=== PATIENT | female | born 1990 | race Caucasian/White ===

== ENCOUNTER 2020-01-17 13:30 | Emergency (ER) | payer OTHER, MEDICAID, SELFPAY ==
[2020-01-17] VITALS (12 sets, daily range): BP systolic 124–133; BP diastolic 72–91; PULSE 80–105; RESP 18; O2SAT 98–100
--- NOTE | 2020-01-17 13:42 | DI.RAD.S_ITS ---
PROCEDURE: XR CHEST 1V INDICATIONS: palpitation, near syncope TECHNIQUE: One view of the chest was acquired. COMPARISON: None. FINDINGS: Surgical changes and devices: None. Lungs and pleura: Lungs are clear. No pleural effusions or pneumothorax. Mediastinum: Mediastinal contours appear normal. Heart size is normal. Bones and chest wall: No suspicious bony lesions. Overlying soft tissues appear unremarkable. IMPRESSION: Normal chest. Dictated by: Romina Taylor M.D. on 01/17/2020 at 13:17 Approved by: Romina Taylor M.D. on 01/17/2020 at 13:17
[2020-01-17 15:01] LABS: Add Manual Diff / Slide Review NO; Basophils Absolute Auto 0 /uL (0-100); Basophils Percent Auto 0.4 % (0-2); Eosinophils Absolute Auto 0 /uL (0-450); Eosinophils Percent Auto 0.2 % (2-4); Hematocrit 34.9 % (36-46); Hemoglobin 11.9 g/dL (12.0-16.0); Lymphocytes Absolute Auto 1500 /uL (1100-4500); Lymphocytes Percent Auto 15.5 % (25-40); Mean Corpuscular HGB Conc 34.2 % (30-36); Mean Corpuscular Hemoglobin 29.7 PG (26-34); Mean Corpuscular Volume 86.8 fL (80-100); Monocytes Absolute Auto 700 /uL (0-900); Monocytes Percent Auto 6.9 % (3-14); Neutrophils Absolute Auto 7300 /uL (1500-7000); Platelet Count 199 X10^3/uL (150-400); Red Blood Cell Count 4.02 X10^6/uL (4.0-5.2); Red Cell Distribution Width 14.3 % (11.6-14.8); White Blood Cell Count 9.5 X10^3/uL (4.5-11.0)
[2020-01-17 15:06] LABS: Creatine Kinase 38 U/L (30-135); Magnesium 1.9 mg/dL (1.6-2.3)
--- NOTE | 2020-01-17 15:12 | PC.NURSE ---
pt states hx of anxiety with rapid heartbeat, felt dizzy while walking to ED and laid down on sidewalk and called EMS to come into ED
[2020-01-17 15:18] LABS: Troponin I < 0.012 ng/mL (0.01-0.034)
[2020-01-17 15:27] LABS: Alanine Aminotransferase 23 IU/L (<35); Albumin 3.9 g/dL (3.5-5.0); Albumin Globulin Ratio 1.3 (1.0-2.8); Alkaline Phosphatase 51 U/L (38-126); Aspartate Aminotransferase 30 IU/L (14-36); BUN Creatinine Ratio 38.1 (6-22); Bilirubin Total 0.3 mg/dL (0.2-1.3); Blood Urea Nitrogen 24 mg/dL (7-17); Calcium 9.4 mg/dL (8.4-10.2); Carbon Dioxide 24 mmol/L (22-32); Chloride 112 mmol/L (98-107); Estimated Glomerular Filt Rate > 60.0 mL/min (>60); Glucose 107 mg/dL (70-100); HEMOLYSIS 16 (0-50); Potassium 3.4 mmol/L (3.4-5.1); Sodium 147 mmol/L (137-145); Total Protein 6.9 g/dL (6.3-8.2)
--- NOTE | 2020-01-17 15:50 | PC.NURSE ---
IV attempted twice without success, lab was called to draw blood
[2020-01-17 16:04] LABS: UR Morphine/Opiate cutoff 300 Negative (Negative); Ur Creatinine Normal (Normal); Ur Specific Gravity Normal (Normal); Urine Amphetamines Negative (Negative); Urine Barbiturates Negative (Negative); Urine Benzodiazepines Negative (Negative); Urine Cocaine Negative (Negative); Urine MDMA Negative (Negative); Urine Methadone Negative (Negative); Urine Methamphetamines Negative (Negative); Urine Oxycodone Negative (Negative); Urine Phencyclidine Negative (Negative); Urine Tetrahydrocannabinol Positive (Negative); Urine Tricyclic Antidepressant Negative (Negative); Urine pH Normal (Normal)
--- NOTE | 2020-01-18 00:49 | ED.ARRPALP ---
HPI - Arrhythmia/Palpitations <THERESE Lomax - Last Filed: 01/18/20 01:20> General Chief Complaint: Arrhythmia/Palpitations Stated Complaint: Rapid HR Source: patient and EMS Mode of arrival: EMS Limitations: no limitations History of Present Illness HPI narrative: This is a 29 year female, nonsmoker, who has noncontributing medical history and a visitor from [place] presents to ED with [facility] with chief complain of racing heart and feels like passing out when she had anxiety attacks. Patient denies associated symptoms such as chest pain, breathing difficulty, nausea/vomiting/diarrhea, fever, chills, or cold sweats. Patient denies having added stress more than usual at this time. Patient was not feeling well and walking to the hospital but not fell well so lie down on a street and a bypasseer called the ambulance. Patient states she has been hydrating well with [place] water and has been drinking 1-2 cans hourly. Patient reports she has been having restless leg, occasional tremors as well. She denies history of thyroid disease or taking high dose of caffeine or energy drinks. She denies using alcohol or street drugs. Related Data Allergies Allergy/AdvReac Type Severity Reaction Status Date / Time amoxicillin Allergy Severe Anaphylacti Verified 01/18/20 00:57 c Review of Systems <THERESE Lomax - Last Filed: 01/18/20 01:20> Review of Systems Narrative: General: Denies fever, chills, fatigue, malaise, sweats. HEENT: Denies sinus pain, ear pain, sore throat, difficulty swallowing, dizziness. Respiratory: Denies dyspnea, cough, wheezing, hemoptysis, sputum. Cardiovascular: Denies chest pain, (+) palpitations, orthopnea, edema, (+) near syncope. Gastrointestinal: Denies nausea, vomiting, abdominal pain, diarrhea, constipation, melena. : Denies dysuria, frequency, incontinence, hematuria, urinary retention. Musculoskeletal: Denies weakness, joint pain or bony pain. Skin: Denies rash, skin lesions, or other. Neurologic: Denies weakness, headache, numbness, change in speech, confusion, seizures, incoordination. Psychiatric: See HPI 12-point review of systems is negative except for those stated above. Patient History <THERESE Lomax - Last Filed: 01/18/20 01:20> Medical History Anxiety (Acute) Surgical History No pertinent past surgical history (Acute) Social History Smoking Status: Never smoker Smoking Status: Never smoker Substance Use Type: does not use Exam <THERESE Lomax - Last Filed: 01/18/20 01:20> Narrative Exam Narrative: GEN: Alert, oriented x 3, thin appearing, umkept appearance but in no acute distress. Head: Normal cephalic, atraumatic. No scalp or temporal tenderness, palpable mass or rash. EYES: Pupils are equal, round, and reactive to light and accommodation. Extraocular muscles are intact bilaterally. There is no subconjunctival hemorrhage, exudate and sclera non-icteric. ENT: Hearing grossly intact. Nose without bleeding, purulent discharge or deviation. Facial sinuses nontender to palpate. Mucous membrane moist, no mucosal lesion. Throat without erythema, tonsillar hypertrophy or exudate. Uvula in midline, airway patent. Neck: Trachea in midline. No JVD, non-tender without lymphadenopathy. No masses or thyroid megaly. Supple, non-tender and no meningeal signs. CARDIAC: Normal regular mild tachy rate and rhythm without murmurs, gallops, or rubs. No chest wall tenderness. No peripheral edema, cyanosis or pallor. Capillary refill is less than 2 seconds. RESPIRATORY: Lungs are clear to auscultate bilaterally. No cough, wheezes, rales, or rhonchi. No stridor, respiratory distress, increase work of breathing, or accessary muscle used. ABD: Abdomen soft, nontender and non-distended. No guarding or rebound tenderness to palpate. Bowel sounds are normal in all 4 quadrants. There is no palpable masses or organomegaly. EXT: Full painless ROM of all extremities with no loss of sensation, strength, effusion or edema. SKIN: Warm, dry, normal color for patient. No erythema, lesions or rash over visible areas. BACK: Nontender without deformity or crepitance. No flank tenderness. NEUROLOGICAL: Alert and oriented to place, time and person. Sensation and motor function intact bilaterally. No facial droops, dysphasia. PSYCHIATRIC: Good judgement and reason, without hallucinations, abnormal affect or abnormal behaviors during the examination. Patient is not suicidal. Initial Vital Signs Initial Vital Signs: Vital Signs Blood Pressure 133/91 H 01/17/20 13:33 <Katarzyna White MD - Last Filed: 01/18/20 07:22> Initial Vital Signs Initial Vital Signs: Vital Signs Blood Pressure 133/91 H 01/17/20 13:33 Scores <Rosalio Cruz VETERINARIAN ASSISTANT - Last Filed: 01/18/20 01:20> GCS Chava coma scale eye opening: Spontaneous Chava coma scale verbal response: Orientated Chava coma scale motor response: Obey commands Chava coma scale total score: 15 HEART Score Heart Score history: Slightly Suspicious Heart Score EKG: Normal Heart Score Age: < 45 years old Heart Score risk factors: No known risk factors Heart Score troponin: < or = to normal limit Heart Score Total: 0 Wells' Criteria for PE Clinical signs and symptoms of DVT: No PE is #1 Dx or equally likely: No Heart rate > 100: Yes Immobilization at least 3 days or surg in previous 4 weeks: No History of PE or DVT: No Hemoptysis: No Malignancy w/Treatment within 6 months or palliative: No Wells' PE Score total: 1.5 Course <Rosalio Cruz VETERINARIAN ASSISTANT - Last Filed: 01/18/20 01:20> Orders Ordered: Discontinued Medications Sodium Chloride (Normal Saline 0.9%) 1,000 mls @ 1,000 mls/hr IV CONT [facility] Last Admin: 01/17/20 17:06 Dose: Not Given Documented by: RONALDO Vital Signs Vital signs: Vital Signs - 8 hr 01/17/20 17:00 Pulse Rate 85 Pulse Oximetry 99 <Katarzyna White MD - Last Filed: 01/18/20 07:22> Orders Ordered: Discontinued Medications Sodium Chloride (Normal Saline 0.9%) 1,000 mls @ 1,000 mls/hr IV CONT [facility] Last Admin: 01/17/20 17:06 Dose: Not Given Documented by: CELESTINE Vital Signs Vital signs: Vital Signs - 8 hr 01/17/20 17:00 Pulse Rate 85 Pulse Oximetry 99 MDM - Arrhythmia/Palpitations <Rosalio Torres-THERESE Escobar - Last Filed: 01/18/20 01:20> Differential Diagnosis Differential diagnosis: Likely palpitations, anxiety, sinus tachycardia and other (electrolyte imbalance, infection, arrythmia, PE, , hyperthyroidism, hypo glycemia) Medical Records Attestation: I reviewed the patient's medical records. Lab Data Attestation: I reviewed the patient's lab results. Result diagrams: 01/17/20 14:40 01/17/20 14:40 Labs: Lab Results 01/17/20 01/17/20 01/17/20 Range/Units 14:40 14:40 14:40 WBC 9.5 (4.5-11.0) X10^3/uL RBC 4.02 (4.0-5.2) X10^6/uL Hgb 11.9 L (12.0-16.0) g/dL Hct 34.9 L (36-46) % MCV 86.8 (80-100) fL MCH 29.7 (26-34) PG MCHC 34.2 (30-36) % RDW 14.3 (11.6-14.8) % Plt Count 199 (150-400) X10^3/uL Neut % (Auto) 77.0 H (50-75) % Lymph % (Auto) 15.5 L (25-40) % [place] % (Auto) 6.9 (3-14) % Eos % (Auto) 0.2 L (2-4) % Baso % (Auto) 0.4 (0-2) % Neut # (Auto) 7300 H (8874-0460) /uL Lymph # (Auto) 1500 (4608-0006) /uL [place] # (Auto) 700 (0-900) /uL Eos # (Auto) 0 (0-450) /uL Baso # (Auto) 0 (0-100) /uL Sodium 147 H (137-145) mmol/L Potassium 3.4 (3.4-5.1) mmol/L Chloride 112 H (98-107) mmol/L Carbon Dioxide 24 (22-32) mmol/L BUN 24 H (7-17) mg/dL Creatinine 0.63 (0.52-1.04) mg/dL Estimated GFR > 60.0 (>60) mL/min BUN/Creatinine Ratio 38.1 H (6-22) Glucose 107 H (70-100) mg/dL Calcium 9.4 (8.4-10.2) mg/dL Magnesium 1.9 (1.6-2.3) mg/dL Total Bilirubin 0.3 (0.2-1.3) mg/dL AST 30 (14-36) IU/L ALT 23 (<35) IU/L Alkaline Phosphatase 51 (38-126) U/L Total Creatine Kinase 38 (30-135) U/L CK-MB (CK-2) TNP CK-MB (CK-2) Rel Index TNP Troponin I < 0.012 (0.01-0.034) ng/mL Total Protein 6.9 (6.3-8.2) g/dL Albumin 3.9 (3.5-5.0) g/dL Globulin 3.0 (1.7-4.1) g/dL Albumin/Globulin Ratio 1.3 (1.0-2.8) TSH U Opiates 300ng/mL cut (Negative) Ur Oxycodone Screen (Negative) Urine Methadone Screen (Negative) Ur Barbiturates Screen (Negative) U Tricyclic Antidepress (Negative) Ur Phencyclidine Scrn (Negative) Ur Amphetamines Screen (Negative) U Methamphetamines Scrn (Negative) Ur MDMA Scrn (Ecstasy) (Negative) U Benzodiazepines Scrn (Negative) Urine Cocaine Screen (Negative) U Marijuana (THC) Screen (Negative) 01/17/20 01/17/20 Range/Units 14:40 15:30 WBC (4.5-11.0) X10^3/uL RBC (4.0-5.2) X10^6/uL Hgb (12.0-16.0) g/dL Hct (36-46) % MCV (80-100) fL MCH (26-34) PG MCHC (30-36) % RDW (11.6-14.8) % Plt Count (150-400) X10^3/uL Neut % (Auto) (50-75) % Lymph % (Auto) (25-40) % [place] % (Auto) (3-14) % Eos % (Auto) (2-4) % Baso % (Auto) (0-2) % Neut # (Auto) (1943-1971) /uL Lymph # (Auto) (1322-0151) /uL [place] # (Auto) (0-900) /uL Eos # (Auto) (0-450) /uL Baso # (Auto) (0-100) /uL Sodium (137-145) mmol/L Potassium (3.4-5.1) mmol/L Chloride (98-107) mmol/L Carbon Dioxide (22-32) mmol/L BUN (7-17) mg/dL Creatinine (0.52-1.04) mg/dL Estimated GFR (>60) mL/min BUN/Creatinine Ratio (6-22) Glucose (70-100) mg/dL Calcium (8.4-10.2) mg/dL Magnesium (1.6-2.3) mg/dL Total Bilirubin (0.2-1.3) mg/dL AST (14-36) IU/L ALT (<35) IU/L Alkaline Phosphatase (38-126) U/L Total Creatine Kinase (30-135) U/L CK-MB (CK-2) CK-MB (CK-2) Rel Index Troponin I (0.01-0.034) ng/mL Total Protein (6.3-8.2) g/dL Albumin (3.5-5.0) g/dL Globulin (1.7-4.1) g/dL Albumin/Globulin Ratio (1.0-2.8) TSH Cancelled U Opiates 300ng/mL cut Negative (Negative) Ur Oxycodone Screen Negative (Negative) Urine Methadone Screen Negative (Negative) Ur Barbiturates Screen Negative (Negative) U Tricyclic Antidepress Negative (Negative) Ur Phencyclidine Scrn Negative (Negative) Ur Amphetamines Screen Negative (Negative) U Methamphetamines Scrn Negative (Negative) Ur MDMA Scrn (Ecstasy) Negative (Negative) U Benzodiazepines Scrn Negative (Negative) Urine Cocaine Screen Negative (Negative) U Marijuana (THC) Screen Positive H (Negative) Point of Care Testing Test Results Negative Glucose POC 115 Urine Dip Bedside Urine Glucose Negative Bedside Urine Bilirubin - Negative Bedside Urine Ketone - Negative Urine Specific [place] 1.025 Bedside Urine Occult Blood - Negative Bedside Urine pH 6 Bedside Urine Protein +/- 15 Bedside Urine Urobilinogen +/- 1mg Bedside Urine Nitrite - Negative Bedside Urine Leukocytes - Negative Esterase Imaging Data Chest x-ray: Radiologist's Impresson: [address] [id number] XRay Report Signed Patient: Patricia Franco#: [id number] : 1990Acct:[id number] Age/Sex: 29 / FDate of Service: 01/17/20 Loc: ED Accession Number: [id number] Procedure: XR chest 1V Ordering Provider: Rosalio Cruz PROCEDURE: XR CHEST 1V INDICATIONS: palpitation, near syncope TECHNIQUE: One view of the chest was acquired. COMPARISON: None. FINDINGS: Surgical changes and devices: None. Lungs and pleura: Lungs are clear. No pleural effusions or pneumothorax. Mediastinum: Mediastinal contours appear normal. Heart size is normal. Bones and chest wall: No suspicious bony lesions. Overlying soft tissues appear unremarkable. IMPRESSION: Normal chest. Dictated by: Romina Taylor M.D. on 01/17/2020 at 13:17 Approved by: Romina Taylor M.D. on 01/17/2020 at 13:17 ECG Data Attestation: I personally reviewed and interpreted this ECG as follows: Prior ECG tracings: not available for review Interpretation: ST rate at 103. NOrmal [place]. [place] interval 146, QRS duration 94, QT/QTC 327/[address] changes. No S1Q3T3. MDM Narrative Medical decision making narrative: This is a 29-year-old female who presents to ED by EMS with chief complain of fast heart beats , near syncope with feeling like having an anxiety attacks. EKG shows sinus tachycardia rate at 103 with normotensive. Negative orthostatic vital signs. Chest x-ray was negative for acute. CBC shows very mild decrease in H&H of 11.9 and 34.9. No leukocytosis. Despite patient states has been hydrating well herself, chemistry test shows sodium of 147, chloride of 112, normal magnesium and potassium. Elevated BUN of 24 with increased BUN/creatinine ratio of 38.1 indicating dehydration. Glucose was 107. Normal liver and kidney function test. Cardiac enzymes were negative. TSH was ordered but it was unable to process this due to the patient was hard stick for blood draw and IV start. Patient was hydrated orally with 2 largest cups of water. Patient reports feeling improved and was able to ambulate to the bathroom without dizziness in stable gait. Despite patient states not using street drugs, urine test came back with positive for THC. Wells criteria for PE was 1.5 and in low risk. No CT angio was done at this time. Patient is afebrile and no source of infection was found. Patient's heart rate improved to 85 after the hydration and rest before discharged home with normotensive and O2 said at 99%. Advised to hydrate well for next a day or 2. Return precautions were discussed with patient and patient verbalized understanding in agreement with treatment plan. <Katarzyna White MD - Last Filed: 01/18/20 07:22> Lab Data Labs: Lab Results 01/17/20 01/17/20 01/17/20 Range/Units 14:40 14:40 14:40 WBC 9.5 (4.5-11.0) X10^3/uL RBC 4.02 (4.0-5.2) X10^6/uL Hgb 11.9 L (12.0-16.0) g/dL Hct 34.9 L (36-46) % MCV 86.8 (80-100) fL MCH 29.7 (26-34) PG MCHC 34.2 (30-36) % RDW 14.3 (11.6-14.8) % Plt Count 199 (150-400) X10^3/uL Neut % (Auto) 77.0 H (50-75) % Lymph % (Auto) 15.5 L (25-40) % [place] % (Auto) 6.9 (3-14) % Eos % (Auto) 0.2 L (2-4) % Baso % (Auto) 0.4 (0-2) % Neut # (Auto) 7300 H (3590-9264) /uL Lymph # (Auto) 1500 (3854-4280) /uL [place] # (Auto) 700 (0-900) /uL Eos # (Auto) 0 (0-450) /uL Baso # (Auto) 0 (0-100) /uL Sodium 147 H (137-145) mmol/L Potassium 3.4 (3.4-5.1) mmol/L Chloride 112 H (98-107) mmol/L Carbon Dioxide 24 (22-32) mmol/L BUN 24 H (7-17) mg/dL Creatinine 0.63 (0.52-1.04) mg/dL Estimated GFR > 60.0 (>60) mL/min BUN/Creatinine Ratio 38.1 H (6-22) Glucose 107 H (70-100) mg/dL Calcium 9.4 (8.4-10.2) mg/dL Magnesium 1.9 (1.6-2.3) mg/dL Total Bilirubin 0.3 (0.2-1.3) mg/dL AST 30 (14-36) IU/L ALT 23 (<35) IU/L Alkaline Phosphatase 51 (38-126) U/L Total Creatine Kinase 38 (30-135) U/L CK-MB (CK-2) TNP CK-MB (CK-2) Rel Index TNP Troponin I < 0.012 (0.01-0.034) ng/mL Total Protein 6.9 (6.3-8.2) g/dL Albumin 3.9 (3.5-5.0) g/dL Globulin 3.0 (1.7-4.1) g/dL Albumin/Globulin Ratio 1.3 (1.0-2.8) TSH U Opiates 300ng/mL cut (Negative) Ur Oxycodone Screen (Negative) Urine Methadone Screen (Negative) Ur Barbiturates Screen (Negative) U Tricyclic Antidepress (Negative) Ur Phencyclidine Scrn (Negative) Ur Amphetamines Screen (Negative) U Methamphetamines Scrn (Negative) Ur MDMA Scrn (Ecstasy) (Negative) U Benzodiazepines Scrn (Negative) Urine Cocaine Screen (Negative) U Marijuana (THC) Screen (Negative) 01/17/20 01/17/20 Range/Units 14:40 15:30 WBC (4.5-11.0) X10^3/uL RBC (4.0-5.2) X10^6/uL Hgb (12.0-16.0) g/dL Hct (36-46) % MCV (80-100) fL MCH (26-34) PG MCHC (30-36) % RDW (11.6-14.8) % Plt Count (150-400) X10^3/uL Neut % (Auto) (50-75) % Lymph % (Auto) (25-40) % [place] % (Auto) (3-14) % Eos % (Auto) (2-4) % Baso % (Auto) (0-2) % Neut # (Auto) (7279-6796) /uL Lymph # (Auto) (7525-7993) /uL [place] # (Auto) (0-900) /uL Eos # (Auto) (0-450) /uL Baso # (Auto) (0-100) /uL Sodium (137-145) mmol/L Potassium (3.4-5.1) mmol/L Chloride (98-107) mmol/L Carbon Dioxide (22-32) mmol/L BUN (7-17) mg/dL Creatinine (0.52-1.04) mg/dL Estimated GFR (>60) mL/min BUN/Creatinine Ratio (6-22) Glucose (70-100) mg/dL Calcium (8.4-10.2) mg/dL Magnesium (1.6-2.3) mg/dL Total Bilirubin (0.2-1.3) mg/dL AST (14-36) IU/L ALT (<35) IU/L Alkaline Phosphatase (38-126) U/L Total Creatine Kinase (30-135) U/L CK-MB (CK-2) CK-MB (CK-2) Rel Index Troponin I (0.01-0.034) ng/mL Total Protein (6.3-8.2) g/dL Albumin (3.5-5.0) g/dL Globulin (1.7-4.1) g/dL Albumin/Globulin Ratio (1.0-2.8) TSH Cancelled U Opiates 300ng/mL cut Negative (Negative) Ur Oxycodone Screen Negative (Negative) Urine Methadone Screen Negative (Negative) Ur Barbiturates Screen Negative (Negative) U Tricyclic Antidepress Negative (Negative) Ur Phencyclidine Scrn Negative (Negative) Ur Amphetamines Screen Negative (Negative) U Methamphetamines Scrn Negative (Negative) Ur MDMA Scrn (Ecstasy) Negative (Negative) U Benzodiazepines Scrn Negative (Negative) Urine Cocaine Screen Negative (Negative) U Marijuana (THC) Screen Positive H (Negative) Point of Care Testing Test Results Negative Glucose POC 115 Urine Dip Bedside Urine Glucose Negative Bedside Urine Bilirubin - Negative Bedside Urine Ketone - Negative Urine Specific [place] 1.025 Bedside Urine Occult Blood - Negative Bedside Urine pH 6 Bedside Urine Protein +/- 15 Bedside Urine Urobilinogen +/- 1mg Bedside Urine Nitrite - Negative Bedside Urine Leukocytes - Negative Esterase Discharge Plan Departure Patient Disposition: Home Clinical Impression: Near syncope, Tachycardia, Dehydration Discharge Date/Time: 01/17/20 17:23 Instructions: Dehydration, DI for Tachycardia Activity Restrictions/Additional Instructions: You have been diagnosed with [tachycardia and near syncope likely from dehydration]. What to do: *Take your medications as directed. Please hydrate with water at least 2 L next couple of days. EKG shows no acute findings. Very mild anemia per blood test. Your sodium, chloride, BUN was elevated indicating your dehydrated. Cardiac enzymes were negative. Chest x-ray was negative For acute findings. *Follow up with your primary care provider in 2-3 days, call for an appointment. Let them know you were seen in the ED and that we asked you to be seen in follow up. *Return to ED if you have any new, worsening, or concerning symptoms, such as [chest pain, breathing difficulty, unable to tolerate fluids, fever, or any acute concerns]. Referrals: Adriana Cabrera DO [Primary Care Provider] - <Katarzyna White MD - Last Filed: 01/18/20 07:22> Cosign ED Attending Cosignature Attestation: I was immediately available in the department for consultation throughout this patient's visit. I agree with documentation as above. Katarzyna White MD
== END 2020-01-17 17:23 | disposition home or self-care (01) ==
PROVIDERS: Emergency Provider Nurse Practitioner Family; PCP Family Medicine
DX: R55 Syncope and collapse (principal); R00.0 Tachycardia, unspecified; E86.0 Dehydration; R79.89 Other specified abnormal findings of blood chemistry
CPT/HCPCS: 71045; 80053; 80305; 81003; 81025; 82550; 82962; 83735; 84484; 85025; 93005; 93010; 99283; 99284

== ENCOUNTER 2020-02-12 13:20 | Observation (INO) | payer OTHER, MEDICAID, SELFPAY ==
[2020-02-12] VITALS (16 sets, daily range): BP systolic 115–168; BP diastolic 75–105; PULSE 81–140; RESP 10–24; TEMP 36.2–37.1; O2SAT 94–100; BMI 20.3
--- NOTE | 2020-02-12 13:37 | DI.RAD.S_ITS ---
PROCEDURE: XR HAND LT MIN 3V INDICATIONS: blisters TECHNIQUE: 3 views of the hand(s) acquired. COMPARISON: None. FINDINGS: Bones: No fractures or dislocations. Carpal bones are normally aligned. No suspicious bony lesions. Soft tissues: Prominent soft tissue thickening is seen, particularly involving the base of the thumb and the proximal 2nd and 3rd fingers, get there is generalized soft tissue swelling. IMPRESSION: Generalized soft tissue swelling, with particular thickening of the base of the thumb and the proximal 2nd and 3rd fingers. Please correlate with known history and physical examination findings. Dictated by: Artem Fraga M.D. on 02/12/2020 at 13:31 Approved by: Artem Fraga M.D. on 02/12/2020 at 13:33
--- NOTE | 2020-02-12 13:48 | ED_ITS ---
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 She is unsure what happened. She says that she was cleaning the garage out yesterday she denies using any chemicals she certainly did not injure it. She thought that it felt weird last night sort of like she slept on it woke up late this morning and has significant swelling and blisters all around her hand. She denies any previous fevers chills or weakness. She denies any abuse. 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 Later patient admits that she recently relapsed and injected heroin into her hip yesterday and fell asleep on that hand. She adamantly denies any chemical use. Left hand dominant MD complaint: abscess/boil and lesion Related Data Home Medications Medication Instructions Recorded Confirmed No Known Home Medications 02/12/20 02/12/20 Allergies Allergy/AdvReac Type Severity Reaction Status Date / Time amoxicillin Allergy Severe Anaphylacti Verified 02/12/20 15:01 c doxycycline Allergy Verified 02/12/20 15:38 haloperidol [From Haldol] Allergy Verified 02/12/20 15:38 Review of Systems Review of Systems Narrative: GENERAL: Denies chills, fatigue, malaise, fever, sweats, travel HEENT: Denies sinus pain, ear pain, sore throat, difficulty swallowing, neck pain RESPIRATORY: Denies dyspnea, cough, wheezing, hemoptysis, sputum. CARDIOVASCULAR: Denies chest pain, palpitations, orthopnea, edema GASTROINTESTINAL: Denies nausea, vomiting, abdominal pain, diarrhea, constipation, melena. : Denies dysuria, frequency, incontinence, hematuria, urinary retention, flank pain. MUSCULOSKELETAL: Denies weakness, joint pain, or bony pain SKIN: See HPI NEUROLOGIC: Denies weakness, dizziness, headache, numbness, change in speech, confusion PSYCHIATRIC: No concerning psychosocial issues. 12 point review of systems is negative except for those stated above and HPI Patient History Medical History (Updated 02/12/20 @ 17:47 by Jaye Rodriguez DO) Anxiety (Acute) Epilepsy (Acute) Surgical History (Updated 02/12/20 @ 15:54 by Kanu Lino MD) No pertinent past surgical history (Acute) Status post (Acute) Social History (Updated 02/12/20 @ 13:52 by Jaye Rodriguez DO) Smoking Status: Never smoker substance use type: former substance user Smoking Status: Never smoker Substance Use Type: does not use Exam Initial Vital Signs Initial Vital Signs: Vital Signs Temperature 98.8 F 02/12/20 13:20 Pulse Rate 140 H 02/12/20 13:20 Respiratory Rate 16 02/12/20 13:20 Blood Pressure 168/76 H 02/12/20 13:20 Pulse Oximetry 97 02/12/20 13:20 GENERAL: Well-appearing, well-nourished and in no acute distress. CARDIOVASCULAR: peripheral pulses in tact, cap refill <2 sec RESPIRATORY: No respiratory distress, speaks in full sentences without difficulty EXTREMITIES: Normal range of motion, no clubbing or edema. Neurovascularly intact Left hand: See images below. Extreme pain decreased range of motion due to pain and swelling. She actually has sensation at the tips of all finger tips. She has a good strong radial pulse. The forearm is soft. Skin is blotchy with erythematous areas. NEUROLOGICAL: Cranial nerves II through XII grossly intact. Normal gait and speech. SKIN: Warm, dry, no petechiae, no rashes or lesions. Course Course Course Narrative: Orders Ordered: ED Orders 02/12/20 13:37 XR hand LT min 3V Stat 02/12/20 14:29 COVID19 -ED/INPAT/OR/L&D Stat 02/12/20 15:55 Urine Drug Screen, Rapid Stat 02/12/20 16:39 Basic Metabolic Panel Stat C-Reactive Protein Quant Stat Complete Blood Count AUTO DIFF Stat Erythrocyte Sedimentation Rate Stat Acetaminophen (Tylenol) 650 mg PO PACUNOW PRN PRN Reason: Pain, Mild (1-3) Fentanyl (Sublimaze) 0 mcg IV Q5M PRN PRN Reason: Pain, Moderate (4-6) Hydromorphone HCl (Dilaudid) 0 mg IV Q5MIN PRN PRN Reason: Pain, Mild (1-3) Lactated Ringer's (Lactated Ringers) 1,000 mls @ 42 mls/hr IV CONT CHRISSIE Last Infusion: 02/12/20 17:25 Dose: 0 mls/hr Documented by: JOSE L Admin: 02/12/20 16:29 Dose: 42 mls/hr Documented by: JOSE L Lactated Ringer's (Lactated Ringers) 1,000 mls @ 120 mls/hr IV CONT CHRISSIE Meperidine HCl (Demerol) 25 mg IV PACUNOW PRN PRN Reason: Moderate pain or shivering Ondansetron HCl (Zofran) 4 mg IV NOW PRN PRN Reason: Nausea And Vomiting Last Admin: 02/12/20 18:08 Dose: 4 mg Documented by: LINDA Oxycodone HCl (Percolone) 5 mg PO PACUNOW PRN PRN Reason: Mild or moderate pain Discontinued Medications Hydromorphone HCl (Dilaudid) 1 mg IV NOW ONE Stop: 02/12/20 13:38 Last Admin: 02/12/20 14:07 Dose: Not Given Documented by: KEARA Hydromorphone HCl (Dilaudid) 1 mg IV NOW ONE Stop: 02/12/20 15:17 Last Admin: 02/12/20 15:22 Dose: 1 mg Documented by: NICKY Sodium Chloride (Normal Saline 0.9%) 1,000 mls @ 1,000 mls/hr IV BOLUS ONE Stop: 02/12/20 15:31 Last Infusion: 02/12/20 18:25 Dose: 100 mls/hr Documented by: Infusion: 02/12/20 17:25 Dose: 100 mls/hr Documented by: JOSE L Infusion: 02/12/20 16:29 Dose: 0 mls/hr Documented by: JOSE L Admin: 02/12/20 14:43 Dose: 100 mls/hr Documented by: ALTON Clindamycin Phosphate (Cleocin) 900 mg in 50 mls @ 50 mls/hr IV NOW ONE Stop: 02/12/20 16:49 Last Infusion: 02/12/20 16:40 Dose: 0 mls/hr Documented by: JOSE L Admin: 02/12/20 16:30 Dose: 50 mls/hr Documented by: BUSB Consultations Consultation #1: Dr. Vick, burn physician at [facility] recommend irrigating until we know the cause. Also requests asking patient if there is any chance she injected, may be ischemic and need hand surgery immediately. Time: 14:25 Consultation #2: Dr. Song hand surgery at [place], requests that are orthopedics release pressure of the hand this seems to be a compartment syndrome of the hand that he is happy to accept afterwards. He also requests pulse oximeter be placed on all finger tips. Time: 14:44 Consultation #3: Dr. Lino updated on concern for potential compartment syndrome he is in ED to see and evaluate patient. Patient going to OR Time: 14:50 Vital Signs Vital signs: Vital Signs - 8 hr 02/12/20 13:20 02/12/20 14:56 02/12/20 15:00 Temperature 98.8 F Pulse Rate 140 H 116 H 97 H Respiratory Rate 16 24 22 Blood Pressure 168/76 H 157/104 H 156/105 H Pulse Oximetry 97 100 100 MDM - Skin/Abscess/Foreign Bdy Lab Data Attestation: I reviewed the patient's lab results. Result diagrams: 02/12/20 16:39 02/12/20 16:39 Labs: Lab Results 02/12/20 Range/Units 14:29 COVID-19 PCR Negative (Negative) Point of Care Testing Test Results Negative Imaging Data Extremity x-ray #1: Radiologist's Impression: PROCEDURE: XR HAND LT MIN 3V INDICATIONS: blisters TECHNIQUE: 3 views of the hand(s) acquired. COMPARISON: None. FINDINGS: Bones: No fractures or dislocations. Carpal bones are normally aligned. No suspicious bony lesions. Soft tissues: Prominent soft tissue thickening is seen, particularly involving the base of the thumb and the proximal 2nd and 3rd fingers, get there is generalized soft tissue swelling. IMPRESSION: Generalized soft tissue swelling, with particular thickening of the base of the thumb and the proximal 2nd and 3rd fingers. Please correlate with known history and physical examination findings. Dictated by: Artem Fraga M.D. on 02/12/2020 at 13:31 Approved by: Artem Fraga M.D. on 02/12/2020 at 13:33 [facility] Narrative Medical decision making narrative: Patient initially not up front about what had happened. She then admitted that she used heroin yesterday fell asleep under hand. A concern for compartment syndrome. She has pain 100 proportion but does have sensation in all 5 finger tips. Pulse ox some 95%, 2nd finger, 97%, 3rd finger 97%, 4th finger is 90%, 5th finger 100% Patient is accepted to [facility] by Dr. Greenberg compartment syndrome has been addressed by Dr. Lino. Dr. Lino confirms likely compartment syndrome of the hypothenar eminence. He also released the carpal tunnel as well. Critical Care Time Critical Care Time Critical Care Time: Yes Total Critical Care Time: 45 Attestation: The high probability of a clinically significant, sudden or life threatening deterioration of the neurovascular system(s) required my full and direct attention, intervention and personal management. The aggregate critical care time was [45] minutes. This time is in addition to time spent performing reported procedures but includes the following: [x] Data Review and interpretation [x] Patient assessment and monitoring of vital signs [x] Documentation [x] Medication orders and management Discharge Plan Departure Patient Disposition: General Acute Hospital Clinical Impression: Compartment syndrome of hand Qualifiers: Encounter type: initial encounter Laterality: left Qualified Code(s): T79.A12A - Traumatic compartment syndrome of left upper extremity, initial encounter Discharge Date/Time: 02/12/20 16:21 Admit Date/Time: 02/12/20 15:29 Admit Provider: Kanu Lino
[2020-02-12] MEDS: HYDROMORPHONE 1 MG INJ (14:08)
[2020-02-12] MEDS: SODIUM CHLORIDE 0.9% 1,000 ML 100 ML IV (14:43)
[2020-02-12 15:07] LABS: COVID19 -Nasal RAPID Negative (Negative)
--- NOTE | 2020-02-12 15:07 | PC.NURSE ---
patient is left hand dominant. each of the patients fingers on her left hand checked with the pulse oximeter and the results were 5th digit- 100% 4th digit- 90% 3rd digit- 97% 2nd digit- 97% 1st digit- 95%. patients left arm/hand elevated. provider aware.
[2020-02-12] MEDS: HYDROMORPHONE 1 MG INJ IV (15:22)
--- NOTE | 2020-02-12 15:50 | P.HP_ITS ---
History of Present Illness History of Present Illness Date Patient Seen: 02/12/20 Time Patient Seen: 15:40 Date of Onset of Symptoms: 02/12/20 Chief complaint: lt hand swollen/ blistered Narrative: Patient is a 29-year-old left-hand dominant female. She injected heroin IV yesterday and lost consciousness, lying with pressure on her left hand. She awoke during the night to significant left hand pain. This did not improve during the day and she reported to [facility] Emergency Room. Consultation with [facility] was obtained by the emergency room staff. [facility] has requested local compartment release prior to sending the patient. I have been consulted to perform this. The patient has been NPO since lunch time yesterday. She reports that she is HIV negative and hepatitis negative to her knowledge. She reports that she had been in recovery but this was her 1st IV injection in relapse. Patient History Medical History (Updated 02/12/20 @ 15:54 by Kanu Lino MD) Anxiety (Acute) Epilepsy (Acute) Surgical History (Updated 02/12/20 @ 15:54 by Kanu Lino MD) No pertinent past surgical history (Acute) Status post (Acute) Family & Social History Social History: The patient has a history of IV drug use as outlined in the history of present illness. Safety & Behavioral: Feels Safe in Current Yes Environment Been Physically Hurt or No Threatened By a Person Tobacco & Substance use: Smoking Status Never smoker Substance Use Type does not use Meds Home Medications and Allergies Home Medications Medication Instructions Recorded Confirmed Type No Known Home Medications 02/12/20 02/12/20 History Allergies Allergy/AdvReac Type Severity Reaction Status Date / Time amoxicillin Allergy Severe Anaphylacti Verified 02/12/20 15:01 c doxycycline Allergy Verified 02/12/20 15:38 haloperidol [From Haldol] Allergy Verified 02/12/20 15:38 Review of Systems Review of Systems ROS: Yes All systems reviewed with the patient and are negative except as otherwise documented Exam Vital Signs (past 8 hours): - 02/12/20 13:20 02/12/20 14:56 02/12/20 15:00 Temperature 98.8 F Pulse Rate 140 H 116 H 97 H Respiratory Rate 16 24 22 Blood Pressure 168/76 H 157/104 H 156/105 H Pulse Oximetry 97 100 100 02/12/20 15:30 Temperature Pulse Rate 113 H Respiratory Rate Blood Pressure Pulse Oximetry 100 Oxygen Delivery Method Room Air Narrative Exam Narrative: HEENT normocephalic atraumatic. Chest clear to auscultation. Cardiac exam regular rate and rhythm no rubs murmurs or gallops. Abdomen soft nontender with no masses and normal abdominal bowel sounds. Left upper extremity is grossly swollen with large blisters overlying the thumb and several of the fingers. The dorsum of the hand is quite tense. The thenar and hypothenar eminences are less so. She has intact light touch in the tips of all digits. Objective Labs Labs: Laboratory Results - last 24 hr 02/12/20 14:29 COVID-19 PCR Negative Assessment & Plan Assessment & Plan narrative: The patient has been lying on her hand for appro ximately 12-18 hours while unconscious from the use of heroin intravenously. Her hand is grossly swollen and may have a compartment syndrome. Both the emergency room physician and I have discussed the case with the on-call hand surgeon at [facility]. It is there institutional policy that patients with compartment syndrome require fasciotomy prior to transfer. We will perform fasciotomies of the hand and a carpal tunnel release. I have informed the patient this is not an operation I am familiar with but given the emergency situation it is necessary that we proceed. Risks discussed included but were not limited to: Possible incomplete release, permanent nerve or muscle damage, infection, deep venous thrombosis, pulmonary embolism, stroke, myocardial infarction, permanent paralysis and . The patient indicated her understanding and has agreed to proceed with surgery. COVID-19 COVID-19 status: Negative Result date/Date tested (Pos, Neg/Pending): 02/12/20 Time Spent With Patient Time with patient: 25 - 35 minutes
[2020-02-12 16:13] LABS: WBC Urine None Seen (0-5/HPF)
[2020-02-12] MEDS: LACTATED RINGERS 1,000 ML 42 ML IV (16:29)
[2020-02-12] MEDS: CLINDAMYCIN 900 MG/50 ML PIGGYBACK 50 MG IV (16:30)
[2020-02-12 16:31] LABS: Amorphous Sediment Urine 2+; Culture Indicated Urine Cult Not Indicated; RBC Urine 1-5/HPF (0-5/HPF); Squamous Epithelial Cell Urine 1-5 /HPF (0-5/HPF)
[2020-02-12 16:36] LABS: Ur Creatinine Normal (Normal); Ur Specific Gravity Normal (Normal); Urine pH Normal (Normal)
[2020-02-12 16:37] LABS: UR Morphine/Opiate cutoff 300 Positive (Negative); Urine Amphetamines Positive (Negative); Urine Barbiturates Negative (Negative); Urine Benzodiazepines Positive (Negative); Urine Cocaine Negative (Negative); Urine MDMA Negative (Negative); Urine Methadone Negative (Negative); Urine Methamphetamines Positive (Negative); Urine Oxycodone Negative (Negative); Urine Phencyclidine Negative (Negative); Urine Tetrahydrocannabinol Positive (Negative); Urine Tricyclic Antidepressant Negative (Negative)
--- NOTE | 2020-02-12 16:54 | SUR.OPER ---
Supine on padded OR bed, head on pillow, right arm secured on padded arm board at <90 degrees abduction, left arm on large padded arm board controlled by surgeon, legs uncrossed, safety belt at thigh, tape over blanket over lower legs.
[2020-02-12 16:55] LABS: Add Manual Diff / Slide Review NO; Basophils Absolute Auto 0 /uL (0-100); Basophils Percent Auto 0.2 % (0-2); Eosinophils Absolute Auto 0 /uL (0-450); Hematocrit 37.7 % (36-46); Hemoglobin 12.7 g/dL (12.0-16.0); Lymphocytes Absolute Auto 800 /uL (1100-4500); Lymphocytes Percent Auto 9.9 % (25-40); Mean Corpuscular HGB Conc 33.7 % (30-36); Mean Corpuscular Hemoglobin 29.7 PG (26-34); Monocytes Absolute Auto 300 /uL (0-900); Monocytes Percent Auto 3.1 % (3-14); Neutrophils Absolute Auto 7300 /uL (1500-7000); Neutrophils Percent Auto 86.8 % (50-75); Platelet Count 262 X10^3/uL (150-400); Red Blood Cell Count 4.28 X10^6/uL (4.0-5.2); Red Cell Distribution Width 14.8 % (11.6-14.8); White Blood Cell Count 8.4 X10^3/uL (4.5-11.0)
[2020-02-12 17:11] LABS: BUN Creatinine Ratio 21.8 (6-22); Blood Urea Nitrogen 12 mg/dL (7-17); Calcium 8.5 mg/dL (8.4-10.2); Carbon Dioxide 27 mmol/L (22-32); Chloride 101 mmol/L (98-107); Estimated Glomerular Filt Rate > 60.0 mL/min (>60); Glucose 114 mg/dL (70-100); HEMOLYSIS 18 (0-50); Potassium 3.9 mmol/L (3.4-5.1); Sodium 134 mmol/L (137-145)
[2020-02-12 17:28] LABS: Erythrocyte Sedimentation Rate 4 MM/HR (0-20)
--- NOTE | 2020-02-12 17:32 | PM.OP.1 ---
Operative Date/Time/Diagnoses Date of procedure: 02/12/20 Time of procedure: 17:32 Pre-op diagnosis: Left hand compartment syndrome Post-op diagnosis: same Procedure & Clinicians Procedure: Left hand compartment syndrome fasciotomies Same procedure as scheduled: Yes Indications: The patient is a 29-year-old left-hand dominant woman who became intoxicated with multiple drugs including heroin, lost consciousness and low awoke to a significant pain and swelling of her left hand. She was seen at [facility] emergency room for consultation was obtained from the Trauma Center at [facility]. The patient was accepted in transfer for care however fasciotomy was dictated as being mandatory before transfer. I was consulted to perform that procedure. The patient agreed after discussion the risks benefits and alternatives as outlined in her history and physical. Surgeon: Kanu Lino Click Yes if Unassisted: Yes Anesthesia Type: General Operative Notes Findings: Significant swelling of the thenar and hyper thenar eminences. Large fluid bulla over the thumb and a large subcutaneous fluid collection dorsally which did not appear to be connected with swelling in the interosseous compartments. Closure Type: primary (For the carpal tunnel incision only) Specimen(s): none sent Estimated Blood Loss (mL): 10 Blood products transfused: none Tourniquet time (min): 32 Procedure in detail: The patient was seen in the emergency room and agreed to surgery as noted above. She was taken to the operating room and placed on the operating room table in a supine position. She was given clindamycin 900 mg IV as a preoperative antibiotic due to her allergy to amoxicillin. The patient underwent general anesthesia. After satisfactory anesthesia had been induced, a tourniquet was placed about the proximal left arm. A radio time salesperson-out was performed. The left arm was prepared with Betadine due to the presence of blisters which might have opened during preparation. The arm was draped through sterile drapes. The arm was elevated for 1 minutes to exsanguinated and the tourniquet inflated to 250 mm of mercury. The bulla overlying the thumb was unroof to as it obscured the site of 1 of the incisions. Initially a carpal tunnel incision was planned. This was extended into the distal forearm to ensure complete release. Care was taken to maintain this to the ulnar side of the palmaris longus. The tendons and nerve were identified in the distal forearm and traced out carefully into the palm with full release of the transverse carpal ligament. Although there was some edema fluid in this release this did not appear to be under pressure. The thenar eminence muscles were then released through an incision at the juncture between the palmar and dorsal skin along the radial aspect of the thumb. A similar incision was created over the hypothenar eminence on the ulnar side and the muscular fascia released here. The muscle in both of these swelled significantly upon release of the fascia. We then turned our attention to the dorsal releases. An incision was created overlying the 2nd metacarpal and the intraosseous compartment on the either side of the metacarpal was released. Scissors were then placed deep to the interosseous compartment in an attempt to release the adductor compartment. The final incision was then placed over the 4th metacarpal axis and the interosseous compartments on either side of that metacarpal were also released. Although there was extensive subcutaneous edema fluid on the dorsal side of the hand it did not appear that the interosseous muscles were grossly swollen. I elected to close the carpal tunnel incision to prevent nerve and tendon desiccation. This was accomplished with horizontal mattress sutures of 3 O nylon. The remaining 4 wounds were packed with moist 4x4s. The exposed blister base was dressed with a Xeroform, as was the carpal tunnel incision. Fluffs were then placed followed by Kerlix and a bias cut stockinette. The tourniquet was deflated during dressing placement for a total tourniquet time of 32 minutes. The patient was then allowed to awaken from anesthesia in the operating room and taken to the recovery room in good condition having tolerated the procedure well. Complications: none Post-operative Condition: stable Disposition: PACU Plan for aftercare: The patient will be transferred from the PACU back to the emergency room with the anticipation of transfer to [facility] for definitive management for her compartment syndrome and potential wound healing complications.
--- NOTE | 2020-02-12 17:42 | PC.NURSE ---
Spoke with and updated next of kin, father. He verbalized understanding of need for transfer to higher level of care - [facility]. Denied questions or concerns. Signed EMTALA.
--- NOTE | 2020-02-12 17:51 | SUR.PHASEI ---
Patient arousable to verbal but falls back asleep quickly.
[2020-02-12] MEDS: ONDANSETRON 4 MG/2 ML INJ IV (18:08)
--- NOTE | 2020-02-12 18:16 | SUR.PHASEI ---
Placed non-skid slipper to feet for safety and warmth.
[2020-02-12 18:17] LABS: Creatine Kinase 12695 U/L (30-135)
--- NOTE | 2020-02-12 18:24 | SUR.PHASEI ---
Patient to [facility] via EMS in stable condition. All belongings returned to patient.
== END 2020-02-12 18:25 | disposition short-term general hospital (02) ==
LOC: ED 13:37 → AC 15:29
PROVIDERS: Admitting Provider Orthopaedic Surgery; Emergency Provider Emergency Medicine; PCP Family Medicine; Visit Provider Orthopaedic Surgery
PROC: (CPT 64721; principal; 2020-02-12 15:30)
DX: T79.A12A Traumatic compartment syndrome of left upper extremity, initial encounter (principal); S60.522A Blister (nonthermal) of left hand, initial encounter; F11.10 Opioid abuse, uncomplicated; F19.10 Other psychoactive substance abuse, uncomplicated; Z11.59 Encounter for screening for other viral diseases
CPT/HCPCS: 26037; 64721; 73130; 80048; 80305; 81003; 81015; 81025; 82550; 85025; 85651; 86140; 87635; 96361; 96374; 96375; 96376; 99284; 99291; G0378; J1100; J1170; J1885; J2250; J2405; J2704

== ENCOUNTER 2024-11-18 19:19 | Emergency (ER) | payer MEDICAID, SELFPAY ==
[2024-11-18 20:13] VITALS: BP 123/70; PULSE 103; RESP 18; TEMP 36.8; O2SAT 98; BMI 21.1
== END 2024-11-18 23:06 | disposition left against medical advice (07) ==
PROVIDERS: Emergency Provider Emergency Medicine; PCP Family Medicine
CPT/HCPCS: 99281

== ENCOUNTER → 2025-01-04 09:48 | Outpatient (CLI) | payer OTHER, MEDICAID, SELFPAY | PROVIDERS: PCP Family Medicine; Visit Provider Chiropractor | DX: R30.0 Dysuria (principal); N94.9 Unspecified condition associated with female genital organs and menstrual cycle; Z72.51 High risk heterosexual behavior | CPT/HCPCS: 87077; 87086; 87210 ==